=== PATIENT | male | born 1950 | race Caucasian/White ===

== ENCOUNTER → 2018-05-30 09:12 | Outpatient (CLI) | payer OTHER ==
[2018-05-30 10:27] LABS: APPEARANCE CLEAR (CLEAR); BILIRUBIN NEGATIVE (NEGATIVE); COLOR YELLOW (YELLOW); GLUCOSE NEGATIVE (NEGATIVE); KETONE NEGATIVE (NEGATIVE); NITRITE NEGATIVE (NEGATIVE); PROTEIN NEGATIVE (NEGATIVE); SPECIFIC GRAVITY 1.015 (1.005-1.020); UROBILINOGEN NORMAL (NORMAL)
[2018-05-30 10:37] LABS: ALBUMIN 3.9 g/dL (3.4-5.0); ALKALINE PHOSPHATASE 77 U/L (46-116); ALT (SGPT) 12 U/L (10-68); CALC OSMOLALITY 279 mosm/kg (275-300); CALCIUM 8.7 mg/dL (8.5-10.1); CHLORIDE - SERUM 104 mmol/L (98-107); GLUCOSE 97 mg/dL (74-106); POTASSIUM - SERUM 4.5 mmol/L (3.5-5.1); SODIUM 140 mmol/L (136-145); UREA NITROGEN 15 mg/dL (7-18); eGFR NON AFRICAN AMERICAN 78 mL/min (90-120)
== END | disposition home or self-care (01) ==
LOC: D.LAB 09:00
PROVIDERS: ATTEND Orthopaedic Surgery
DX: E11.9 Type 2 diabetes mellitus without complications (principal)